=== PATIENT | female | born 1965 | race African-American/Black ===

== ENCOUNTER 2016-09-02 22:59 | Emergency (ER) | payer BC ==
[~2016-09-02 22:59] MED LIST: AMLO10TA4 PO; Aspirin PO; CARV12.52 PO; GABA-585 PO; HYDR12.58 PO; METO50TA2 PO; NIFE30TA17 PO; PANT40TA3 PO
[2016-09-02 23:06] VITALS: BP 136/81
[2016-09-02 23:40] LABS: BILIRUBIN,URINE NEGATIVE (NEG); GLUCOSE,URINE NEGATIVE (NEG); NITRITE,URINE NEGATIVE (NEG); PROTEIN,URINE 30 mg/dL (NEG-TRACE)
[2016-09-02 23:45] LABS: BACTERIA,URINE FEW /HPF (0-FEW); SQUAMOUS EPITHELIAL CELL,UR MOD /LPF; WBC,URINE OCC /HPF (0-4)
[2016-09-02] MEDS ORDERED: ORPHENADRINE CITRATE 60 MG/2 ML VIAL. IM ONE (23:45)
[2016-09-02] MEDS ORDERED: KETOROLAC TROMETHAMINE 60 MG/2 ML SYRINGE. IM ONE (23:45)
[2016-09-03] MEDS ORDERED: METH-37 PO (00:18)
[2016-09-03] MEDS ORDERED: HYDR-971 PO (00:18)
--- NOTE | 2016-09-03 00:18 | PHYS DOC ---
Past Medical History Past Medical History: Hypertension Past Surgical History: Additional Information: Nonsmoker Alcohol Use: None Drug Use: None Adult General Chief Complaint Chief Complaint: BACK PAIN - NO INJURY HPI HPI Patient is a 51 year old female who presents with left-sided back pain for 2 weeks. She denies any injury. The pain is worse with movement. Pain does not radiate. She denies any weakness or numbness. She has not had any incontinence or saddle anesthesia. She denies nausea, vomiting, abdominal pain, urinary symptoms, or fever. She has tried ibuprofen, Ultram, and heat at home without relief of her pain. She had been prescribed Augmentin for an ear infection recently. She told her doctor that she was concerned that the Augmentin was causing a urinary tract infection and was changed to ciprofloxacin on 08/17/16. She reports improvement in her symptoms after 2 days on the Cipro. Her pain became worse over the last 2 days. Her PCP is Dr. Nam Long. Review of Systems Review of Systems Constitutional: Denies fever or chills. [] Eyes: Denies change in visual acuity, redness, or eye pain. [] HENT: Denies ear pain, nasal congestion or sore throat. [] Respiratory: Denies cough or shortness of breath. [] Cardiovascular: Denies chest pain, palpitations or edema. [] GI: Denies abdominal pain, nausea, vomiting, bloody stools or diarrhea. [] : Denies dysuria, hematuria or urinary frequency. [] Musculoskeletal: Denies joint pain. Reports left-sided back pain. Integument: Denies rash or skin lesions. [] Neurologic: Denies headache, focal weakness or sensory changes. Denies incontinence or saddle anesthesia. Endocrine: Denies polyuria or polydipsia. [] Psych: Denies anxiety or depression. [] All systems reviewed and negative unless otherwise stated in the HPI. Current Medications Current Medications Current Medications Medications (Trade) Dose Ordered Sig/Dutch Start Time Stop Time Status Last Admin Dose Admin Ketorolac Tromethamine (Toradol Im) 60 mg 1X ONCE 09/02/16 23:45 09/02/16 23:46 DC 09/02/16 23:41 60 MG Orphenadrine Citrate (Norflex) 60 mg 1X ONCE 09/02/16 23:45 09/02/16 23:46 DC 09/02/16 23:41 60 MG Allergies Allergies Allergies Coded Allergies Type Severity Reaction Last Updated Verified CHAITANYA Inhibitors Allergy Severe HIVES AND SWELLING 12/19/14 Yes diphenhydramine Adverse Reaction Intermediate Anxiety 12/19/14 Yes Physical Exam Physical Exam Constitutional: Well developed, well nourished, no acute distress, non-toxic appearance. [] HENT: Normocephalic, atraumatic, oropharynx moist. [] Eyes: PERRLA, EOMI, conjunctiva normal, no discharge. [] Neck: Normal range of motion, no tenderness, supple, no stridor. [] Cardiovascular: Heart rate regular rhythm, no murmur. [] Lungs & Thorax: Bilateral breath sounds clear to auscultation without wheezes, rales, or rhonchi. [] Abdomen: Bowel sounds normal, soft, no tenderness, no masses, no pulsatile masses. [] Skin: Warm, dry, no erythema, no rash. [] Back: No midline tenderness, no CVA tenderness. There is no midline, paraspinal , or CVA tenderness with palpation. The patient has obvious discomfort with movement of the back. Extremities: No tenderness, ROM intact, no edema. Distal pulses equal bilaterally. [] Neurologic: Alert and oriented X 3, normal motor function, normal sensory function, no focal deficits noted. Patient walks with a slow steady gait without assistance. Psychologic: Affect normal, judgement normal, mood normal. [] Current Patient Data Vital Signs Vital Signs Date Time Temp Pulse Resp B/P Pulse Ox O2 Delivery O2 Flow Rate FiO2 09/02/16 23:06 98.0 94 20 98 Room Air 98.0 Lab Values Laboratory Tests Test 09/02/16 23:30 Urine Collection Type Unknown Urine Color Yellow Urine Clarity Clear Urine pH 7.0 Urine Specific Stuart 1.020 Urine Protein 30mg/dL (NEG-TRACE) Urine Glucose (UA) Negativemg/dL (NEG) Urine Ketones (Stick) Negativemg/dL (NEG) Urine Blood Trace (NEG) Urine Nitrite Negative (NEG) Urine Bilirubin Negative (NEG) Urine Urobilinogen Dipstick 1.0mg/dL (0.2 mg/dL) Urine Leukocyte Esterase Negative (NEG) Urine RBC 6-10/HPF (0-2) Urine WBC Occ/HPF (0-4) Urine Squamous Epithelial Cells Mod/LPF Urine Bacteria Few/HPF (0-FEW) Urine Hyaline Casts Few/HPF Urine Mucus Marked/LPF EKG EKG [] Radiology/Procedures Radiology/Procedures [] Course & Med Decision Making Course & Med Decision Making Pertinent Labs and Imaging studies reviewed. (See chart for details) Patient presents with atraumatic left sided back pain for 2 weeks, worse with movement. On exam, she does not have any tenderness to palpation. UA is negative for infection. She is discharged with prescription for [place] and Robaxin. She is instructed to follow-up with her PCP if her pain continues. Return precautions were discussed. She verbalizes understanding agrees with plan. Dragon Disclaimer Dragon Disclaimer This electronic medical record was generated, in whole or in part, using a voice recognition dictation system. Departure Departure Impression: Primary Impression: Back pain Disposition: HOME, SELF-CARE Condition: STABLE Referrals: NAM LONG MD (PCP) Patient Instructions: Back Pain, Adult, [id number] Additional Instructions: Your urine did not show any infection. Please take the prescribed medications as directed. Do not drive or operate heavy machinery while taking pain medication. Please follow up with your primary care doctor if your pain continues. Return to the emergency department if you have any new or concerning symptoms. Scripts Methocarbamol (Robaxin)500 Mg [id number] Mg PO QID #20 TAB Prov:DENIA PARK 09/03/16 Hydrocodone/Apap 5-325 ([place] 5-325 Tablet)1 Each Tablet1 Tab PO PRN Q6HRS PRN PAIN #20 TAB Prov:DENIA PARK 09/03/16 Problem Qualifiers Primary Impression: Back pain Back pain location: low back pain Chronicity: acute Back pain laterality: left Sciatica presence: without sciatica Qualified Code: M54.5 - Low back pain DENIA PARK Sep 03, 2016 00:18
== END 2016-09-03 00:26 | disposition home or self-care (01) ==
LOC: ER 22:59
DX: N39.0 Urinary tract infection, site not specified (principal); I10 Essential (primary) hypertension; Z98.890 Other specified postprocedural states; Z88.8 Allergy status to other drugs, medicaments and biological substances
CPT/HCPCS: 81001; 96372; 99284; J1885; J2360

== ENCOUNTER 2021-08-03 05:36 | Emergency (ER) | payer BC ==
[~2021-08-03] VITALS: Ht 157.5 cm; Wt 100.0 kg
[~2021-08-03 05:36] MED LIST changes: +CARV12.511 PO; -CARV12.52 PO; +HYDR-3164 PO; +METH-37 PO; -METO50TA2 PO; +METO50TA6 PO; -NIFE30TA17 PO; +NIFE30TA95 PO; -PANT40TA3 PO; +PANT40TA77 PO
[2021-08-03 05:50] VITALS: BP 134/67
[2021-08-03] MEDS ORDERED: HYDROcodone/APAP 5/325MG 1 TAB TABLET PO ONE (06:30)
--- NOTE | 2021-08-03 07:13 | RAD ---
Study: XR KNEE _4 VIEWS WITH PATELLA_LT Indication: Left knee pain. Comparison: None. Findings: No collapse across the femorotibial joint spaces. Arthrosis is mild with small osteophytes. Extensor mechanism enthesophytes. The patella is normally located. No large joint effusion. The soft tissues a ppear mildly prominent superficial to the patella. Impression: 1. No acute osseous abnormality. Mild arthrosis in addition to relatively prominent patellar enthesop hytes. 2. The soft tissues are mildly prominent superficial to the patella. Correlate for any direct trauma or findings suggestive of prepatellar bursitis. Electronically signed by: MARIA ISABEL KIRKLAND MD (08/03/2021 7:11 AM) [facility]
[2021-08-03] MEDS ORDERED: HYDR-2759 PO (07:36)
--- NOTE | 2021-08-03 07:37 | PHYS DOC ---
Past Medical History Past Medical History: Hypertension Additional Past Medical Histor: CHRONIC BACK PAIN & R KNEE TORN MENISCUS Past Surgical History: , Other Additional Past Surgical Histo: CARPPEL TUNNEL L WRIST Smoking Status: Never Smoker Alcohol Use: None Drug Use: None General Adult EDM: Chief Complaint: LOWER EXT PAIN HPI: HPI: Patient is a 56 year old female with history of right knee meniscal tear, cardiac lumbar back pain who presents now with left knee pain. Knee pain is been progressively worse over the past month. States that it was "coming and going" for several weeks now and has become more constant over the past several days. The pain is primarily over the kneecap and the top of the kneecap. With movement feels that it radiates up towards her quads No fevers, chills, joint swelling, joint warmth, or skin changes overlying the knee. Review of Systems: Review of Systems: Constitutional: Denies fever or chills. [] Eyes: Denies change in visual acuity. [] HENT: Denies nasal congestion or sore throat. [] Respiratory: Denies cough or shortness of breath. [] Cardiovascular: Denies chest pain or edema. [] GI: Denies abdominal pain, nausea, vomiting, bloody stools or diarrhea. [] : Denies dysuria. [] Musculoskeletal: Left knee pain Integument: Denies rash. [] Neurologic: Denies headache, focal weakness or sensory changes. [] Psychiatric: Denies depression or anxiety. [] Heart Score: C/O Chest Pain: No Current Medications: Current Medications Medications (Trade) Dose Ordered Sig/[facility] Start Time Stop Time Status Last Admin Dose Admin Acetaminophen/ Hydrocodone Bitart (Lortab 5/325) 1 tab 1X ONCE 08/03/21 06:30 08/03/21 06:33 DC 08/03/21 07:05 1 TAB Allergies: Allergies: Allergies Coded Allergies Type Severity Reaction Last Updated Verified CHAITANYA Inhibitors Allergy Severe HIVES AND SWELLING 12/19/14 Yes diphenhydramine Adverse Reaction Intermediate Anxiety 12/19/14 Yes Physical Exam: PE: Constitutional: Well developed, well nourished, no acute distress, non-toxic appearance. [] Cardiovascular: Regular rate Lungs & Thorax: Normal work of breathing Skin: Warm, dry, no erythema, no rash. [] Back: No tenderness, no CVA tenderness. [] Extremities: Tenderness to palpation over the superior portion of the patella of the left knee, tenderness extends into the quad tendon. Pain is made worse activation of the extensor mechanism. No tenderness to palpation over the femoral condyles, the proximal tibia, the fibula, or the medial/lateral joint lines. No overlying redness, warmth, or palpable effusion. DP pulse 2+. Neurologic: Alert and oriented X 3, normal motor function, normal sensory function, no focal deficits noted. [] Psychologic: Affect normal, judgement normal, mood normal. [] Current Patient Data: Vital Signs: Vital Signs Date Time Temp Pulse Resp B/P (MAP) Pulse Ox O2 Delivery O2 Flow Rate FiO2 08/03/21 07:05 Room Air 08/03/21 05:50 98.8 67 18 134/67 (89) 98 98.8 EKG: EKG: [] Radiology/Procedures: Radiology/Procedures: [] Course & Med Decision Making: Course & Med Decision Making Pertinent Labs and Imaging studies reviewed. (See chart for details) Patient is a 56-year-old female who presents with left knee pain. Exam is consistent with an extensor mechanism tendinitis. X-ray shows prominence enthesophytes over the area supporting diagnosis. Patient has been taking tramadol, naproxen, and lidocaine patches. I have asked her to switch naproxen to ibuprofen 600 mg 4 times daily, and have given a short course of hydrocodone for nighttime use only. She has orthopedic follow up in early August previously scheduled. 0730 Radha Disclaimer: Radha Disclaimer: This electronic medical record was generated, in whole or in part, using a voice recognition dictation system. Departure Departure Impression: Primary Impression: Quadriceps tendinitis Disposition: HOME / SELF CARE / HOMELESS Condition: STABLE Referrals: FOSTER MURRAY MD (PCP) Schedule follow-up appointment Patient Instructions: Knee Pain Additional Instructions: Believe you have strained the tendon of your quadriceps where it attaches to your kneecap. The treatment is anti-inflammatory medications. Please switch your naproxen to ibuprofen 600 mg 4 times daily. Please take with food. After 1 week if you are seeing improvement please reduce dosing. For pain tylenol and ibuprofen are best used on a schedule. Please alternate between the two. -Tylenol 650-1000 mg every 6 hours (do not exceed 4000 mg in one day) For pain not controlled by the above you can take: -Hydrocodone/Tylenol 5/325 mg nightly as needed. Please count the 325 mg of Tylenol towards your daily allotment. This is a narcotic medication and can make you tired and impaired. Please do not use your tramadol while you are on this medication. Do not drive or operate machinery while taking hydrocodone. It can also make you consitpated so please consider taking docusate and miralax (as directed by over the counter directions) to prevent constipation. Please try to take as little hydrocodone as possible and wean yourself off as soon as you are able because it is an addictive medication. Please keep your follow-up appointment with your orthopedic surgeon. Scripts Hydrocodone/Acetaminophen (Hydrocodone-Acetamin 5-325 mg) 1 Each Tablet 1 TAB PO PRN QHS PRN for PAIN, #5 TAB Prov: ANGELIQUE RIVERA MD 08/03/21 ANGELIQUE RIVERA MD Aug 03, 2021 07:37
== END 2021-08-03 07:42 | disposition home or self-care (01) ==
LOC: ER 05:36
DX: M76.892 Other specified enthesopathies of left lower limb, excluding foot (principal); I10 Essential (primary) hypertension; Z88.5 Allergy status to narcotic agent; Z88.8 Allergy status to other drugs, medicaments and biological substances
CPT/HCPCS: 73564; 99283